=== PATIENT | female | born 1955 ===

== ENCOUNTER → 2023-09-07 | Day surgery (SDC) | payer OTHER ==
[~2023-09-07] MED LIST: DIPHENHYDRAMINE HCL 50 MG/ML VIAL 1ML IV ONE; MIDAZOLAM HCL 2 MG/2 ML VIAL IV ONE; MIDAZOLAM HCL 2 MG/2 ML VIAL IV PUSH ONE; fentaNYL CITRATE 50 MCG/ML AMPUL IV PUSH ONE
== END | disposition home or self-care (01) ==
LOC: ADM 08-31 13:00 → AMB-ENDOS 07:46
PROVIDERS: ATTEND Surgery
DX: D12.3 Benign neoplasm of transverse colon (principal); K63.5 Polyp of colon

== ENCOUNTER 2024-04-14 06:50 | Day surgery (SDC) | payer OTHER ==
[2024-04-14] MEDS ORDERED: MIDAZOLAM HCL 2 MG/2 ML VIAL IV ONE (11:45)
[2024-04-14] MEDS ORDERED: DIPHENHYDRAMINE HCL 50 MG/ML VIAL 1ML IV ONE (11:45)
[2024-04-14] MEDS ORDERED: fentaNYL CITRATE 50 MCG/ML AMPUL IV PUSH ONE (11:45)
== END 2024-04-14 13:15 | disposition home or self-care (01) ==
LOC: AMB-ENDOS 06:50
PROVIDERS: ATTEND Surgery
DX: D12.2 Benign neoplasm of ascending colon (principal)